=== PATIENT | female | born 1985 | race African-American/Black ===

== ENCOUNTER 2016-10-19 15:09 | Emergency (ER) | payer OTHER ==
[2016-10-19] MEDS ORDERED: PREDNISONE 20 MG TABLET PO ONE (15:20)
[2016-10-19] MEDS ORDERED: FAMOTIDINE 20 MG TABLET PO ONE (15:21)
--- NOTE | 2016-10-19 15:24 | ER Document Report ---
ED Medical Screen (RME) - General Stated Complaint: ALLERGIC REACTION/THROAT SWELLING Mode of Arrival: Ambulatory Information source: Patient Notes: 31 y/o F presents to ED c/o possible allergic reaction to new medication. Reports hives, itchy throat and tongue. Denies difficulty breathing or swallowing. States took 50 mg Benadryl PO prior to arrival. I have greeted and performed a rapid initial assessment of this patient. A comprehensive ED assessment and evaluation of the patient, analysis of test results and completion of the medical decision making process will be conducted by additional ED providers. TRAVEL OUTSIDE OF THE [place] IN LAST 30 DAYS: No - Related Data Allergies/Adverse Reactions: miconazole nitrate [From Monistat 3] Allergy (Severe, Verified 10/19/16 15:20) itchy naproxen [Naproxen] Adverse Reaction (Intermediate, Verified 10/19/16 15:20) N/V Past Medical History Pulmonary Medical History: Reports: Hx Asthma Neurological Medical History: Reports: Hx Migraine Renal/ Medical History: Reports: Hx Ovarian Cysts GI Medical History: Reports: Hx Gastroesophageal Reflux Disease Psychiatric Medical History: Reports: Hx Anxiety, Hx Bipolar Disorder, Hx Depression, Hx Schizophrenia - ptsd Past Surgical History: Reports: Hx Gynecologic Surgery, Hx Orthopedic Surgery - right wrist ganglion cyst, Hx Tubal Ligation - Immunizations Hx Diphtheria, Pertussis, Tetanus Vaccination: Yes - 10/09/12 Physical Exam - Vital signs Vitals: Temp Pulse Resp BP Pulse Ox 98.2 F 77 16 129/85 H 95 10/19/16 15:18 10/19/16 15:18 10/19/16 15:18 10/19/16 15:18 10/19/16 15:18 - General General appearance: Appears well, Alert In distress: None - Respiratory Respiratory status: No respiratory distress Breath sounds: Normal Course - Vital Signs Vital signs: Temp Pulse Resp BP Pulse Ox 98.2 F 77 16 129/85 H 95 10/19/16 15:18 10/19/16 15:18 10/19/16 15:18 10/19/16 15:18 10/19/16 15:18
--- NOTE | 2016-10-19 17:50 | ER Document Report ---
ED General - General Chief Complaint: Allergic Reaction Stated Complaint: ALLERGIC REACTION/THROAT SWELLING Mode of Arrival: Ambulatory TRAVEL OUTSIDE OF THE [place] IN LAST 30 DAYS: No - Related Data Allergies/Adverse Reactions: miconazole nitrate [From Monistat 3] Allergy (Severe, Verified 10/19/16 15:20) itchy naproxen [Naproxen] Adverse Reaction (Intermediate, Verified 10/19/16 15:20) N/V Past Medical History - General Information source: Patient - Social History Smoking Status: Never Smoker Chew tobacco use (# tins/day): No Frequency of alcohol use: None Drug Abuse: None Family History: Reviewed & Not Pertinent Patient has suicidal ideation: No Patient has homicidal ideation: No Pulmonary Medical History: Reports: Hx Asthma Neurological Medical History: Reports: Hx Migraine Renal/ Medical History: Reports: Hx Ovarian Cysts. Denies: Hx Peritoneal Dialysis GI Medical History: Reports: Hx Gastroesophageal Reflux Disease Psychiatric Medical History: Reports: Hx Anxiety, Hx Bipolar Disorder, Hx Depression, Hx Schizophrenia - ptsd Past Surgical History: Reports: Hx Gynecologic Surgery, Hx Orthopedic Surgery - right wrist ganglion cyst, Hx Tubal Ligation - Immunizations Hx Diphtheria, Pertussis, Tetanus Vaccination: Yes - 10/09/12 Physical Exam - Vital signs Vitals: Temp Pulse Resp BP Pulse Ox 98.2 F 77 16 129/85 H 95 10/19/16 15:18 10/19/16 15:18 10/19/16 15:18 10/19/16 15:18 10/19/16 15:18 Course - Vital Signs Vital signs: Temp Pulse Resp BP Pulse Ox 98.2 F 77 16 129/85 H 95 10/19/16 15:18 10/19/16 15:18 10/19/16 15:18 10/19/16 15:18 10/19/16 15:18 Discharge - Discharge Clinical Impression: Allergic reaction to drug Qualifiers: Encounter type: initial encounter Qualified Code(s): T78.40XA - Allergy, unspecified, initial encounter Condition: Good Disposition: HOME, SELF-CARE Instructions: Acute Allergic Reaction ([facility]), Use of Diphenhydramine Additional Instructions: Continue to take prednisone as directed. Return to the ER if symptoms worsen. Prescriptions: Prednisone [Deltasone 20 mg Tablet] 3 tab PO DAILY 5 Days Forms: Return to Work
[2016-10-19 18:25] VITALS: BP 116/70
== END 2016-10-19 18:23 | disposition home or self-care (01) ==
LOC: ER 15:09
DX: R09.89 Other specified symptoms and signs involving the circulatory and respiratory systems (principal); T50.905A Adverse effect of unspecified drugs, medicaments and biological substances, initial encounter; J45.909 Unspecified asthma, uncomplicated; Z88.8 Allergy status to other drugs, medicaments and biological substances
CPT/HCPCS: 99283; J7512